=== PATIENT | male | born 1965 | race Two or more races ===

== ENCOUNTER 2022-08-30 15:41 | Emergency (ER) | payer OTHER ==
[~2022-08-30] VITALS: Ht 177.8 cm; Wt 109.3 kg
[~2022-08-30 15:41] MED LIST: ASPI-807 PO; CARV3.12 PO
--- NOTE | 2022-08-30 16:05 | NUR ---
BIB RA 39 FROM [facility], CHEST PAIN AT 1500, PARTIAL RELIEF WITH NTG X 2, ASA 324 MG PO GIVEN
[2022-08-30] MEDS ORDERED: MORPHINE SULFATE INJ 2 MG/ML DISP.SYRIN ONE ×2 (16:21→18:27)
--- NOTE | 2022-08-30 16:29 | NUR ---
covid taken sent to lab
--- NOTE | 2022-08-30 16:29 | NUR ---
medicated as order
[2022-08-30] MEDS ORDERED: MORPHINE SULFATE INJ 2 MG/ML DISP.SYRIN IV ONE ×2 (16:30→18:30)
[2022-08-30 16:31] LABS: BASOPHILS % (AUTO) 0.6 % (0.0-2.0); EOSINOPHILS % (AUTO) 5.8 % (0.0-6.0); HEMATOCRIT 39 % (39-51); HEMOGLOBIN 12.8 g/dL (13.5-17.5); LYMPHOCYTES % (AUTO) 16.9 % (20.0-44.0); MEAN CORPUSCULAR HGB CONC 33 g/dl (31.0-36.0); MEAN CORPUSCULAR VOLUME 80 fL (80-96); MONOCYTES # (AUTO) 0.6 K/uL (0.1-1.30); MONOCYTES % (AUTO) 10.9 % (2.0-12.0); NEUTROPHILS # (AUTO) 3.7 K/uL (1.8-8.9); NEUTROPHILS % (AUTO) 65.8 % (43.0-81.0); PLATELET COUNT (AUTO) 196 K/uL (150-450); RED BLOOD CELL COUNT(AUTO) 4.88 MIL/uL (4.5-6.0); WHITE BLOOD COUNT (AUTO) 5.7 K/uL (4.3-11.0)
[2022-08-30] MEDS ORDERED: ONDANSETRON HCL/PF 4 MG/2 ML VIAL ONE (16:45)
[2022-08-30] MEDS ORDERED: ONDANSETRON HCL/PF - ER 4 MG/2 ML VIAL IV ONE (17:00)
[2022-08-30 17:01] LABS: CALCIUM, SERUM 9.3 mg/dL (8.5-10.1); CARBON DIOXIDE 37 mmol/L (21-32); CHLORIDE 101 mmol/L (98-107); CREATININE 1.5 mg/dL (0.6-1.3); GLUCOSE 95 mg/dL (74-106); POTASSIUM 3.7 mmol/L (3.5-5.1); SODIUM SERUM 140 mmol/L (136-145); UREA NITROGEN, BLOOD 21 mg/dL (7-18)
[2022-08-30 17:15] LABS: ALANINE AMINOTRANSFERASE 26 U/L (12-78); ALBUMIN 3.5 g/dL (3.4-5.0); ALKALINE PHOSPHATASE 68 U/L (46-116); ASPARTATE AMINOTRANSFERASE 19 U/L (15-37); BILIRUBIN,DIRECT 0.2 mg/dL (0.0-0.2); BILIRUBIN,TOTAL 0.5 mg/dL (0.2-1.0); TOTAL PROTEIN, SERUM 6.9 g/dL (6.4-8.2)
--- NOTE | 2022-08-30 17:46 | NUR ---
#[phone], number from family caseworker for peer to peer
--- NOTE | 2022-08-30 20:37 | NUR ---
PATIENT WAS COMPLAINING OF STERNAL PRESSURE SCALE OF 7/10. PT WAS GIVEN MORPHINE AT AROUND 1830H. WILL CONTINUE TO MONITOR
--- NOTE | 2022-08-30 20:37 | NUR ---
RECEIVED REPORT FROM NELY LARES. PATIENT CAME EARLIER WITH CC OF CP. PATIENT IS AAOX4. ABLE TO MAKE NEEDS KNOWN. WITH IV NOHEMI ON LEFT FA G18. ON OXYGEN INH AT 3LPM SATS 95%. PATIENT HAS PACEMANKER. ATTACHED TO MONITOR. VITALS CHECKED.
--- NOTE | 2022-08-30 21:56 | NUR ---
DR. RUST ON THE PHONE WITH FOR PEER TO PEER, PT ACCEPTED AT [facility].
--- NOTE | 2022-08-30 22:52 | NUR ---
PT ACCEPTED TO [facility] BY DR ELAM. ALYSON TO ER. # FOR REPORT [phone]. AUTH FOR TRANSPORT [id number]
--- NOTE | 2022-08-30 23:07 | NUR ---
[facility] CALLED [facility] ETA 00:30 TO 1 AM
--- NOTE | 2022-08-31 00:01 | NUR ---
REPORT GIVEN TO CHRISTELLE DAVIS OF [facility].
[2022-08-31] MEDS ORDERED: MORPHINE SULFATE INJ 2 MG/ML DISP.SYRIN ONE (00:07)
--- NOTE | 2022-08-31 00:18 | NUR ---
REPORT GIVEN TO [facility]. [address]. PATIENT WILL BE GOING TO [facility] ER. CHRISTELLE DAVIS MADE AWARE
[2022-08-31 00:21] VITALS: BP 120/71
[2022-08-31] MEDS ORDERED: MORPHINE SULFATE INJ 2 MG/ML DISP.SYRIN IV ONE (00:30)
== END 2022-08-31 00:37 ==
LOC: ER 15:47
DX: R07.89 Other chest pain (principal); I10 Essential (primary) hypertension; F17.200 Nicotine dependence, unspecified, uncomplicated; Z95.1 Presence of aortocoronary bypass graft; Z79.899 Other long term (current) drug therapy; Z79.82 Long term (current) use of aspirin; Z20.822 Contact with and (suspected) exposure to COVID-19
CPT/HCPCS: 99291; 96374; 96375; 87426; 93005; 71045; 96376 ×2; 85025; 80048; 80076; 36415; 84484 ×2; 83880; J2405 ×2; J2270 ×3; C9803